=== PATIENT | male | born 1975 | race Caucasian/White ===

== ENCOUNTER 2024-05-12 14:52 | Emergency (ER) | payer BC, SELFPAY ==
[2024-05-12 15:04] VITALS: BP 154/94
--- NOTE | 2024-05-12 15:06 | ED.GENMED ---
ED Provider Triage
<Darek Corbett PA-C - Last Filed: 05/12/24 15:07>
-
Patient seen by provider in Triage?: Seen in Triage
49-year-old male presents with heart pounding and racing sensation with elevated blood pressure. He was found to have rapid heart rate last week. He was started on metoprolol 50 mg daily by his family doctor. Is been taking his daily every day
since then and took 2 of them today but notes his heart is still racing. He denies leg swelling or calf pain. He notes a recent flight to [place] but it was only an hour and a half flight. He is not short of breath. There is no chest pain. He
reports no fever. He is tachycardic with a heart rate of around 115 in triage not hypoxic.
EKG, labs ordered.
History of Present Illness
<Darek Corbett PA-C - Last Filed: 05/12/24 15:07>
General
Chief Complaint: Cardiac Symptoms
Time Seen by Provider: 05/12/24 20:41
<Danny Locke DO - Last Filed: 05/12/24 20:57>
History of Present Illness
History of Present Illness:
TIME OF INITIAL ENCOUNTER: 8:45 PM
HPI: 49-year-old male presents with heart pounding and racing sensation with elevated blood pressure. He was found to have rapid heart rate last week. He was started on Toprol 50 mg daily by his family doctor. Has been taking his daily every day
since then and took 2 of them today but notes his heart is still racing. He denies leg swelling or calf pain. He is not short of breath. There is no chest pain. He reports no fever. He is tachycardic with a heart rate of around 115 in triage not
hypoxic. The patient has no shortness of breath.
EXAM:
GENERAL: Well appearing in no distress
HEENT: Moist oral mucosa
CARDIOVASCULAR: No murmurs, borderline tachycardic heart rate, regular rhythm, No chest wall tenderness
PULMONARY: No respiratory distress, breath sounds are clear and equal
ABDOMEN: Soft with no peritoneal signs, no tenderness
NEUROLOGIC: Excellent strength all extremities, no coordination deficits
PSYCHIATRIC: Appropriate mental status, normal insight and judgement
EXTREMITIES: Nontender, no edema, moves all extremities equally
SKIN: No rash, no lesions
NUMBER AND COMPLEXITY OF PROBLEMS ADDRESSED AT THE ENCOUNTER
� Chronic conditions affecting care: High blood pressure
� Acute Exacerbation and/or Progression of Chronic Illness: This is an acute problem
� Differential Diagnosis includes: Anxiety, dysrhythmia, hyperthyroidism, electrolyte abnormality, dehydration, MARY
AMOUNT AND/OR COMPLEXITY OF DATA TO BE REVIEWED AND ANALYZED
� I performed an independent evaluation of and my interpretation is:
EKG: Sinus 107, normal axis, normal intervals
CT:
X-rays:
Laboratory Studies: CBC is normal, chemistries normal, TSH is less than 0.02, free T4 is 3.9
Other:
� Review of other/old records: Patient had colonoscopy in 2022
� Clinical information was obtained by an independent historian: None needed
� Prescriptions/Medications Considered but not given:
� Further testing considered but not performed:
RISK OF COMPLICATIONS AND/OR MORBIDITY OR MORTALITY OF PATIENT MANAGEMENT
� Social determinants of health affecting care: Lives at home
� Discussion with other providers: Message Dr. Honeycutt for further recommendations�shchristine recommends methimazole 5 mg daily and close outpatient follow-up
� Escalation of care including admission/observation vs risk of discharge considered: The patient has already been on beta-kennedy and remains to be tachycardic with palpitations. TSH low and free T4 is elevated. Although
workup suggestive of hyperthyroidism, he has no other symptoms of hyperthyroidism other than the palpitations. Currently, the patient feels well with no significant palpitations. He states he is also going to be seeing a marketing strategy manager in the near
future. No indication for admission to the hospital as he is virtually symptom-free currently and heart rate is under 100.
ANY OTHER UPDATES:
Past History
<Darek Corbett PA-C - Last Filed: 05/12/24 15:07>
Past History
ED Past Medical History: HTN
ED Past Surgical History: Other (Sinus surgery/wisdom teeth/hernia)
Social History
Tobacco: Non-smoker
Alcohol: None
Living: with family
Phy Exam
<Danny Locke DO - Last Filed: 05/12/24 20:57>
Physical Exam
Physical Exam:
See HPI
Course
<Darek Corbett PA-C - Last Filed: 05/12/24 15:07>
Orders/Labs/Results
Orders:
Orders
05/12/24 14:53
Electrocardiogram (*1) Urgent
Reason for Study: Palpitations
05/12/24 14:54
EKG- Treatment ONCE
05/12/24 15:09
Complete Blood Count/With Diff Urgent
Free T4 Urgent
TSH Reflex To Free T4 Urgent
05/12/24 15:10
Comprehensive Metabolic Panel Urgent
Abnormal Lab Results
05/12/24 05/12/24
15:09 15:10
RBC 4.59 L 10^6/uL
(4.70-6.10)
Hct 38.8 L %
(39.0-52.0)
MPV 10.7 H fL
(7.4-10.4)
Absolute Monos (auto) 0.8 H 10^3/uL
(0.1-0.6)
Monocytes % 10.9 H %
(1.7-9.3)
Creatinine 0.6 L mg/dL
(0.7-1.3)
Glucose 109 H mg/dl
(70-99)
TSH (Reflex) < 0.02 L uIU/ml
(0.47-4.68)
Free T4 3.94 H ng/dl
(0.78-2.19)
05/12/24 15:09
05/12/24 15:10
Vital Signs
Initial and Last Documented VS:
Initial Vital Signs
Temp Pulse Resp BP Pulse Ox
98.7 F 107 18 154/94 97
05/12/24 15:04 05/12/24 15:04 05/12/24 15:04 05/12/24 15:04 05/12/24 15:04
Last Documented Vital Signs
Temp Pulse Resp BP Pulse Ox
97.7 F 94 20 144/92 97
05/12/24 18:08 05/12/24 20:02 05/12/24 20:02 05/12/24 20:02 05/12/24 20:02
<Danny Locke, DO - Last Filed: 05/12/24 20:57>
Orders/Labs/Results
Orders:
Orders
05/12/24 14:53
Electrocardiogram (*1) Urgent
Reason for Study: Palpitations
05/12/24 14:54
EKG- Treatment ONCE
05/12/24 15:09
Complete Blood Count/With Diff Urgent
Free T4 Urgent
TSH Reflex To Free T4 Urgent
05/12/24 15:10
Comprehensive Metabolic Panel Urgent
Abnormal Lab Results
05/12/24 05/12/24
15:09 15:10
RBC 4.59 L 10^6/uL
(4.70-6.10)
Hct 38.8 L %
(39.0-52.0)
MPV 10.7 H fL
(7.4-10.4)
Absolute Monos (auto) 0.8 H 10^3/uL
(0.1-0.6)
Monocytes % 10.9 H %
(1.7-9.3)
Creatinine 0.6 L mg/dL
(0.7-1.3)
Glucose 109 H mg/dl
(70-99)
TSH (Reflex) < 0.02 L uIU/ml
(0.47-4.68)
Free T4 3.94 H ng/dl
(0.78-2.19)
05/12/24 15:09
05/12/24 15:10
Vital Signs
Initial and Last Documented VS:
Initial Vital Signs
Temp Pulse Resp BP Pulse Ox
98.7 F 107 18 154/94 97
05/12/24 15:04 05/12/24 15:04 05/12/24 15:04 05/12/24 15:04 05/12/24 15:04
Last Documented Vital Signs
Temp Pulse Resp BP Pulse Ox
97.7 F 94 20 144/92 97
05/12/24 18:08 05/12/24 20:02 05/12/24 20:02 05/12/24 20:02 05/12/24 20:02
<Danny Locke DO - Last Filed: 05/12/24 20:57>
*Critical Care Note
Total Time (30-74mins, 75-104mins- exclusive of procedures): Not Applicable
ED Attending Note
<Darek Corbett PA-C - Last Filed: 05/12/24 15:07>
-
Portions of this chart may have been created with voice recognition software.� Occasional wrong word or��sound alike� substitutions may have occurred due to the inherent limitations of voice recognition software.
Discharge Plan
Departure
Prescriptions:
No Action
Multivitamin
1 tab PO DAILY
epinephrine [EpiPen] 0.3 MG/0.3/SYRINGE auto-injector
0.3 mg IM ONCE PRN (Reason: allergic reaction) Qty: 2 0RF
lisinopril 20 MG tablet
20 mg PO DAILY
acetaminophen 325 MG tablet
650 mg PO Q6H Qty: 1 0RF
ibuprofen 200 MG tablet
400 - 600 mg PO Q6HPRN PRN (Reason: moderate pain) Qty: 1 0RF
epinephrine 0.3 mg/0.3 mL auto-injector
0.3 ml SC Q5-15M PRN (Reason: anaphylaxis) Qty: 2 0RF
prednisone 50 mg tablet
50 mg PO DAILY Qty: 5 0RF
Referrals:
UNKNOWN - PT DOES,NOT KNOW [Family Provider] -
Interventions
Interventions:
*Risk Screen - Suicide Last Done: 05/12/24 15:04
*General Assessment Last Done: 05/12/24 15:04
*Neglect/Abuse Screening Last Done: 05/12/24 15:04
*ED COVID-19 Vaccine History Last Done: 05/12/24 15:04
ED- Pulmonary Assessment Last Done: 05/12/24 20:10
ED- Cardiac Assessment Last Done: 05/12/24 20:10
Discharge Date and Time
Print Language: [place]
[2024-05-12 15:34] LABS: ALT (SGPT) 40 U/L (0-50); AST (SGOT) 23 U/L (17-59); Albumin 4.2 g/dl (3.5-5.0); Alkaline Phosphatase 125 U/L (38-126); Blood Urea Nitrogen 17 mg/dl (9-20); Calcium 9.9 mg/dl (8.4-10.2); Carbon Dioxide 23 mmol/L (22-30); Chloride 105 mmol/L (98-107); Glucose 109 mg/dl (70-99); Potassium 4.1 mmol/L (3.5-5.1); Sodium 140 mmol/L (135-145); Total Bilirubin 0.6 mg/dl (0.2-1.3); Total Protein 6.8 g/dl (6.3-8.2); eGFR > 60.00
[2024-05-12 15:34] LABS: % Basophils 0.6 % (0-2); % Eosinophils 0.7 % (0-6); % Immature Granulocytes 0.3 % (0-0.5); % Lymphocytes 25.1 % (20.5-51.1); % Monocytes 10.9 % (1.7-9.3); % Neutrophils 62.4 % (42.2-75.2); Absolute Eosinophils 0.1 10^3/uL (0-0.7); Absolute Lymphocytes 1.8 10^3/uL (1.2-3.4); Absolute Monocytes 0.8 10^3/uL (0.1-0.6); Absolute Neutrophils 4.4 10^3/uL (1.4-6.5); Hematocrit 38.8 % (39.0-52.0); Mean Corp Hgb Conc. 36.1 g/dL (33.0-37.0); Mean Corpuscular Hgb 30.5 pg (27.0-31.0); Mean Corpuscular Volume 84.5 fL (80.0-94.0); Mean Platelet Volume 10.7 fL (7.4-10.4); Nucleated Red Blood Cells % 0 % (-); Platelet Count 274 10^3/uL (130-400); Red Blood Cell Count 4.59 10^6/uL (4.70-6.10); Red Cell Dist. Width 12.3 % (11.5-14.5)
[2024-05-12 16:04] LABS: TSH Reflex To Free T4 < 0.02 uIU/ml (0.47-4.68)
[2024-05-12 17:02] LABS: Free T4 3.94 ng/dl (0.78-2.19)
[2024-05-12 18:08] VITALS: BP 147/89
[2024-05-12 20:02] VITALS: BP 144/92
== END 2024-05-12 21:00 | disposition home or self-care (01) ==
LOC: EMR 14:52
PROVIDERS: Physician Assistant; EMERGENCY PHYSICIAN Emergency Medicine; FAMILY PHYSICIAN Physician Assistant
DX: R00.2 Palpitations (principal); I10 Essential (primary) hypertension
CPT/HCPCS: 99283; 80053; 84439; 84443; 85025; 93005

== ENCOUNTER → 2024-05-20 14:31 | Outpatient (REF) | payer BC, SELFPAY | LOC: HWRCS 14:31 | PROVIDERS: ATTENDING PHYSICIAN Internal Medicine Cardiovascular Disease; FAMILY PHYSICIAN Physician Assistant | DX: R00.0 Tachycardia, unspecified (principal) | CPT/HCPCS: 93306 ==

== ENCOUNTER → 2024-06-02 07:20 | Outpatient (REF) | payer BC, SELFPAY | LOC: RAD 07:20 | PROVIDERS: ATTENDING PHYSICIAN Physician Assistant | DX: E05.90 Thyrotoxicosis, unspecified without thyrotoxic crisis or storm (principal) | CPT/HCPCS: 78014; A9516 ==